=== PATIENT | male | born 1980 | race Caucasian/White ===

== ENCOUNTER 2021-04-26 16:01 | Inpatient (IN) | payer OTHER ==
[~2021-04-26] VITALS: Ht 180.3 cm; Wt 75.3 kg
[2021-04-26 16:07] VITALS: BP_SYST 111
[2021-04-26] MEDS ORDERED: INSULIN REGULAR, HUMAN 10 UNITS/0.1 ML INJ IVP ONE (16:15)
[2021-04-26] MEDS ORDERED: NACL 0.9% 1,000 ML IV ONE ×2 (16:15→18:15)
[2021-04-26 17:09] LABS: BASOPHILS % (AUTO) 0.4 % (0.0-2.0); EOSINOPHILS % (AUTO) 0.5 % (0.0-4.0); HEMOGLOBIN 13.9 g/dL (14.0-18.0); LYMPHOCYTES # (AUTO) 1.1 K/uL (1.0-5.5); MEAN CORPUSCULAR HEMOGLOBIN 30 pg (27-31); MEAN CORPUSCULAR HGB CONC 34 % (32-36); MEAN CORPUSCULAR VOLUME 89 fL (79.0-98.0); MONOCYTES # (AUTO) 0.4 K/uL (0.0-1.0); MONOCYTES % (AUTO) 9.4 % (1.7-9.3); NEUTROPHILS # (AUTO) 2.7 K/uL (1.8-7.7); NEUTROPHILS % (AUTO) 63.7 % (40.0-70.0); PLATELET COUNT (AUTO) 210 K/uL (130-430); RED BLOOD CELL COUNT(AUTO) 4.63 MIL/uL (4.2-6.2); RED CELL DISTRIBUTION WIDTH 14.8 % (9.0-15.0); WHITE BLOOD COUNT (AUTO) 4.3 K/uL (4.8-10.8)
[2021-04-26 17:24] LABS: ANION GAP 10 (5-15); CALCIUM 9.8 mg/dL (8.4-11.0); CHLORIDE 95 mmol/L (98-107); CREATININE 1.07 mg/dL (0.55-1.30); POTASSIUM 4.3 mmol/L (3.5-5.1); SODIUM SERUM 130 mmol/L (136-145); UREA NITROGEN, BLOOD 17 mg/dL (8-21)
[2021-04-26 17:27] LABS: GFR AFRICAN AMERICAN 98 mL/min (>90); GLUCOSE 500 mg/dL (70-99)
[2021-04-26 17:42] LABS: ALANINE AMINOTRANSFERASE 24 U/L (12-78); ALBUMIN 3.7 g/dL (3.4-4.8); AMYLASE 92 U/L (0-100); ASPARTATE AMINOTRANSFERASE 9 U/L (10-37); LIPASE 568 U/L (73-393); TOTAL BILIRUBIN 1.3 mg/dL (0.0-1.0)
[2021-04-26 17:59] LABS: ACETONE, SERUM LARGE (NEGATIVE)
[2021-04-26] MEDS: NACL 0.9% 1,000 ML IV SCH (20:51)
[2021-04-26] MEDS: INSULIN REGULAR, HUMAN 100 UNITS/ML, 10 ML VIAL (humuLIN R) SUBCUT PRN (20:54)
[2021-04-26 22:10] VITALS: BP_SYST 113
[2021-04-27] VITALS (7 sets, daily range): BP systolic 95–132
[2021-04-27] MEDS: NACL 0.9% 1,000 ML IV SCH ×2 (04:48→15:00)
[2021-04-27] MEDS: INSULIN REGULAR, HUMAN 100 UNITS/ML, 10 ML VIAL (humuLIN R) SUBCUT PRN ×4 (06:26→21:34)
[2021-04-27] MEDS ORDERED: PIOGLITAZONE HCL 30 MG TABLET PO ONE (11:00)
[2021-04-27] MEDS ORDERED: LORazepam 2 MG/ML VIAL IVP PRN (11:00)
[2021-04-27] MEDS ORDERED: ONDANSETRON HCL 4 MG/2 ML VIAL IVP PRN (11:00)
[2021-04-27] MEDS ORDERED: NALOXONE HCL 0.4 MG/ML AMP (NARCAN) IVP PRN ×2 (11:00)
[2021-04-27] MEDS: metFORMIN HCL 500 MG TABLET PO SCH ×2 (11:00→18:37)
[2021-04-27] MEDS ORDERED: HYDROcodone/ACETAMIN 5-325 MG TAB (NORCO/ VICODIN) PO PRN (11:00)
[2021-04-27] MEDS ORDERED: HYDROcodone/ACETAMIN 10-325 MG TAB PO PRN (11:00)
[2021-04-27] MEDS ORDERED: ACETAMINOPHEN 325 MG TABLET PO PRN (11:00)
[2021-04-27] MEDS ORDERED: PIOGLITAZONE HCL 15 MG TABLET PO ONE (11:30)
[2021-04-27] MEDS ORDERED: INSULIN GLARGINE 100 UNITS/ML 10 ML VIAL SUBCUT SCH (21:00)
[2021-04-28] MEDS: NACL 0.9% 1,000 ML IV SCH ×3 (04:09→16:27)
[2021-04-28] MEDS ORDERED: INSULIN REGULAR, HUMAN 100 UNITS/ML, 10 ML VIAL SUBCUT SCH (07:00)
[2021-04-28 08:00] VITALS: BP_SYST 108
[2021-04-28] MEDS: metFORMIN HCL 500 MG TABLET PO SCH ×2 (08:33→17:07)
[2021-04-28] MEDS ORDERED: PIOGLITAZONE HCL 15 MG TABLET PO SCH (09:00)
[2021-04-28 09:15] LABS: BASOPHILS % (AUTO) 0.4 % (0.0-2.0); EOSINOPHILS % (AUTO) 0.9 % (0.0-4.0); HEMATOCRIT 40.2 % (36-54); HEMOGLOBIN 13.5 g/dL (14.0-18.0); LYMPHOCYTES # (AUTO) 1.5 K/uL (1.0-5.5); LYMPHOCYTES % (AUTO) 37.9 % (20.5-51.5); MEAN CORPUSCULAR HEMOGLOBIN 30 pg (27-31); MEAN CORPUSCULAR HGB CONC 34 % (32-36); MEAN CORPUSCULAR VOLUME 89 fL (79.0-98.0); MONOCYTES # (AUTO) 0.4 K/uL (0.0-1.0); MONOCYTES % (AUTO) 9.5 % (1.7-9.3); NEUTROPHILS % (AUTO) 51.3 % (40.0-70.0); PLATELET COUNT (AUTO) 195 K/uL (130-430); RED BLOOD CELL COUNT(AUTO) 4.52 MIL/uL (4.2-6.2); RED CELL DISTRIBUTION WIDTH 14.7 % (9.0-15.0); WHITE BLOOD COUNT (AUTO) 3.9 K/uL (4.8-10.8)
[2021-04-28 09:31] LABS: CALCIUM 8.2 mg/dL (8.4-11.0); CREATININE 0.75 mg/dL (0.55-1.30); POTASSIUM 3.8 mmol/L (3.5-5.1)
[2021-04-28] MEDS ORDERED: INSULIN LISPRO SLIDING SCALE 100 UNITS/ML VIAL (humaLOG) SUBCUT PRN (10:30)
[2021-04-28 12:00] VITALS: BP_SYST 106
[2021-04-28] MEDS: INSULIN Lispro 100 UNITS/ML VIAL (humaLOG) SUBCUT SCH ×2 (12:16→16:59)
[2021-04-28 16:00] VITALS: BP_SYST 108
[2021-04-28] MEDS ORDERED: INSU100V SUBCUT (18:09)
[2021-04-28] MEDS ORDERED: INSU100V9 SUBCUT (18:09)
[2021-04-28 19:10] VITALS: BP_SYST 108
[2021-04-28] MEDS ORDERED: INSULIN GLARGINE 100 UNITS/ML 10 ML VIAL SUBCUT SCH ×2 (21:00)
== END 2021-04-28 19:55 | disposition home or self-care (01) | DRG 638 ==
LOC: SED 16:01 → SMU 18:55
PROVIDERS: ADMIT Preventive Medicine Preventive Medicine/Occupational Environmental Medicine; ATTEND Preventive Medicine Preventive Medicine/Occupational Environmental Medicine
DX: E10.10 Type 1 diabetes mellitus with ketoacidosis without coma (principal); E87.1 Hypo-osmolality and hyponatremia; D57.1 Sickle-cell disease without crisis; E88.09 Other disorders of plasma-protein metabolism, not elsewhere classified; M10.9 Gout, unspecified; E10.65 Type 1 diabetes mellitus with hyperglycemia; D72.819 Decreased white blood cell count, unspecified; D64.9 Anemia, unspecified; Z20.822 Contact with and (suspected) exposure to COVID-19; E83.52 Hypercalcemia; E88.89 Other specified metabolic disorders; Z79.4 Long term (current) use of insulin
CPT/HCPCS: 36415; 80048; 80053; 82009; 82150; 82962; 83605; 83690; 85025; 96360; 96372; 99285; J1815